=== PATIENT | female | born 1985 | race African-American/Black ===

== ENCOUNTER 2016-08-19 19:40 | Emergency (ER) | payer OTHER ==
[2016-08-19 19:50] VITALS: BP 190/117; PULSE 101; TEMP 98; BMI 31.6
--- NOTE | 2016-08-19 21:29 | PDOC ---
History of Present Illness <Shivani Stewart - Last Filed: 08/20/16 00:34> - History of Present Illness Initial Comments: 08/19/16 21:49 The patient is a 31 year old female with a past medical hx of gestational diabetes, preeclampsia who presents to the ED for evaluation of SOB and vomiting. The patient states she has been vomiting in the mornings. She reports her LMP was 2 months ago and believes she may be . The patient is also complaining of back pain. The patient denies chest pain The patient denies fever, chills, diarrhea, abdominal pain Surgical: Two C-sections <Judy Jefferson - Last Filed: 08/20/16 00:35> - General Chief Complaint: Vaginal Bleeding Stated Complaint: VAGINAL BLEEDING Time Seen by Provider: 08/19/16 20:15 Past History - Past Medical History Asthma: No Cancer: No Cardiac Disorders: No Diabetes: No HTN: Yes Seizures: No Thyroid Disease: No - Psycho/Social/Smoking Cessation Hx Suicidal Ideation: No Smoking History: Current every day smoker Have you smoked in the past 12 months: No Number of Cigarettes Smoked Daily: 8 Information on smoking cessation initiated: No Hx Alcohol Use: No Drug/Substance Use Hx: No Hx Substance Use Treatment: No <Shivani Stewart - Last Filed: 08/20/16 00:34> <Judy Jefferson - Last Filed: 08/20/16 00:35> - Past Medical History Allergies/Adverse Reactions: Allergies Allergy/AdvReac Type Severity Reaction Status Date / Time No Known Allergies Allergy Verified 08/19/16 19:47 Home Medications: Ambulatory Orders Labetalol HCl [Normodyne -] 200 mg PO DAILY #30 tablet 08/20/16 Review of Systems - Review of Systems Able to Perform ROS?: Yes Comments:: 08/19/16 21:49 CONSTITUTIONAL: Absent: fever, chills, diaphoresis, generalized weakness, malaise, loss of appetite HEENT: Absent: rhinorrhea, nasal congestion, throat pain, throat swelling, difficulty swallowing, mouth swelling, ear pain, eye pain, visual Changes CARDIOVASCULAR: Absent: chest pain, syncope, palpitations, irregular heart rate, lightheadedness , peripheral edema RESPIRATORY: +Shortness of breath Absent: cough, dyspnea with exertion, orthopnea, wheezing, stridor, hemoptysis GASTROINTESTINAL: +Nausea, vomiting. Absent: abdominal pain, abdominal distension, diarrhea, constipation, melena, hematochezia GENITOURINARY: Absent: dysuria, frequency, urgency, hesitancy, hematuria, flank pain, genital pain MUSCULOSKELETAL: +Back pain. Absent: joint swelling SKIN: Absent: rash, itching, pallor NEUROLOGIC: Absent: headache, focal weakness or paresthesias, dizziness, unsteady gait, seizure, mental status changes, bladder or bowel incontinence PSYCHIATRIC: Absent: anxiety, depression, suicidal or homicidal ideation, hallucinations. <LiJudy - Last Filed: 08/20/16 00:35> *Physical Exam - Vital Signs Last Vital Signs Temp Pulse Resp BP Pulse Ox 98.0 F 101 H 14 190/117 96 08/19/16 19:48 08/19/16 19:48 08/19/16 19:48 08/19/16 19:48 08/19/16 19:48 <Shivani Stewart - Last Filed: 08/20/16 00:34> - Vital Signs Last Vital Signs Temp Pulse Resp BP Pulse Ox 98.0 F 101 H 14 190/117 96 08/19/16 19:48 08/19/16 19:48 08/19/16 19:48 08/19/16 19:48 08/19/16 19:48 - Physical Exam Comments: 08/19/16 21:49 GENERAL: Well developed, well nourished. Awake and alert. No acute distress. HEENT: Normocephalic, atraumatic. PERRLA, EOMI. No conjunctival pallor. Sclera are non- icteric. Moist mucous membranes. Oropharynx is clear. NECK: Supple. Full ROM. No JVD. Carotid pulses 2+ and symmetric, without bruits. No thyromegaly. No lymphadenopathy. CARDIOVASCULAR: Regular rate and rhythm. No murmurs, rubs, or gallops. Distal pulses are 2+ and symmetric. PULMONARY: No evidence of respiratory distress. Lungs clear to auscultation bilaterally. No wheezing, rales or rhonchi. ABDOMINAL: Soft. Non-tender. Non-distended. No rebound or guarding. No organomegaly. Normoactive bowel sounds. MUSCULOSKELETAL Normal range of motion at all joints. No bony deformities or tenderness. No CVA tenderness. EXTREMITIES: No cyanosis. No clubbing. No edema. No calf tenderness. SKIN: Warm and dry. Normal capillary refill. No rashes. No jaundice. NEUROLOGICAL: Alert, awake, appropriate. Cranial nerves 2-12 intact. No deficits to light touch and temperature in face, upper extremities and lower extremities. No motor deficits in the in face, upper extremities and lower extremities. Normoreflexic in the upper and lower extremities. Normal speech. Toes are down-going bilaterally. Gait is normal without ataxia. PSYCHIATRIC: Cooperative. Good eye contact. Appropriate mood and affect. <Judy Jefferson - Last Filed: 08/20/16 00:35> ED Treatment Course - LABORATORY CBC & Chemistry Diagram: 08/19/16 21:59 08/19/16 21:59 <Shivani Stewart - Last Filed: 08/20/16 00:34> - LABORATORY CBC & Chemistry Diagram: 08/19/16 21:59 08/19/16 21:59 - RADIOLOGY Radiograph Interpretation: 08/20/16 00:35 FINDINGS: Ultrasound :Uterus is anteverted and measures 10.1centimeters in length. There is a single live IUP with estimated gestational age of 7weeks and 6days. There is a normal heart rate of 156 beats per minute. There is no subchorionic bleed. The right ovary measures 3.9centimeters in length and contains a 2.2 cm complex cyst, possibly a corpus luteum. The left ovary measures 3.3centimeters in length and appears normal. There is no significant free fluid. Pelvic duplex: There is normal arterial and venous flow in both ovaries. IMPRESSION: Live IUP with estimated age of 7 weeks 6 days, without definite abnormalities. THIS DOCUMENT HAS BEEN ELECTRONICALLY SIGNED Ricky Thompson MD 08/20/2016 00:18 EST <Judy Jefferson - Last Filed: 08/20/16 00:35> *DC/Admit/Observation/Transfer <Shivani Stewart - Last Filed: 08/20/16 00:34> - Attestations Scribe Attestion: 08/19/16 21:49 Documentation prepared by Judy Jefferson, acting as medical practice manager for Shivani Stewart MD/DO. <Judy Jefferson - Last Filed: 08/20/16 00:35> Diagnosis at time of Disposition: Hypertension Qualifiers: Weeks of gestation: less than 8 weeks Qualified Code(s): Z3A.01 - Less than 8 weeks gestation of - Discharge Dispostion Disposition: HOME Condition at time of disposition: Stable - Prescriptions Prescriptions: Labetalol HCl [Normodyne -] 200 mg PO DAILY #30 tablet - Referrals Referrals: Hector Butt MD [Primary Care Provider] - - Patient Instructions Printed Discharge Instructions: DI for High Blood Pressure, DI for - - Discomforts and Remedies Additional Instructions: please follow up with your energy economist 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
[2016-08-19] MEDS ORDERED: LABETALOL HCL 200 MG TABLET (FP) PO ONE (21:45)
[2016-08-19] MEDS ORDERED: LABETALOL HCL 100 MG TABLET (FP) ONE (22:07)
[2016-08-19 22:24] LABS: URINE APPEARANCE SLCLOUDY; URINE BILIRUBIN NEGATIVE (NEGATIVE); URINE BLOOD NEGATIVE (NEGATIVE); URINE COLOR YELLOW; URINE GLUCOSE (UA) NEGATIVE (NEGATIVE); URINE KETONE NEGATIVE (NEGATIVE); URINE LEUK ESTERASE NEGATIVE (NEGATIVE); URINE NITRITE NEGATIVE (NEGATIVE); URINE PROTEIN NEGATIVE (NEGATIVE); URINE UROBILINOGEN NEGATIVE E.U./dl (0.2-1.0)
[2016-08-19 22:25] LABS: BASOPHIL 0.4 % (0-2.0); EOSINOPHIL 0.5 % (0-4.5); MEAN PLT VOLUME 8.5 fl (7.5-11.1); NEUTROPHILS 48.8 % (42.8-82.8)
[2016-08-19 22:27] LABS: MCH 26.5 pg (25.7-33.7); MCHC 32.6 g/dl (32.0-36.0); MEAN CELL VOLUME 81.1 fl (80-96); RDW 19.1 % (11.6-15.6); WHITE BLOOD COUNT 6.2 K/mm3 (4.0-10.0)
[2016-08-19 22:30] LABS: PLATELET COUNT 264 K/MM3 (134-434)
[2016-08-19 22:46] LABS: ALBUMIN 3.5 g/dl (3.4-5.0); ANION GAP 8 (8-16); BILIRUBIN,TOTAL 0.1 mg/dL (0.2-1.0); CALCIUM 8.7 mg/dL (8.5-10.1); CO2 23 mmol/L (21-32); CREATININE 0.6 mg/dL (0.55-1.02); GLUCOSE,RANDOM 87 mg/dL (74-106); SGOT/AST 10 U/L (15-37); SGPT/ALT 18 U/L (12-78)
[2016-08-19 22:47] LABS: ALK PHOS 64 U/L (45-117)
[2016-08-19 23:09] LABS: PLATELET ESTIMATE ADEQUATE (NORMAL)
[2016-08-19 23:10] LABS: PLATELET COMMENT2 NO CLOTTING DETECTED; PLATELET COMMENT3 FEW LARGE PLTS
[2016-08-20] MEDS ORDERED: ACETAMINOPHEN 500 MG TABLET (FP) PO ONE (00:06)
[2016-08-20] MEDS ORDERED: ACETAMINOPHEN 325 MG TABLET (FP) ONE (00:29)
== END 2016-08-20 00:26 | disposition home or self-care (01) ==
LOC: JER 19:40
DX: O13.1 Gestational [pregnancy-induced] hypertension without significant proteinuria, first trimester (principal); O34.81 Maternal care for other abnormalities of pelvic organs, first trimester; N83.291 Other ovarian cyst, right side; Z3A.08 8 weeks gestation of pregnancy
CPT/HCPCS: 36415; 76817-TC; 80053; 81003; 84702; 85025; 99282-25

== ENCOUNTER 2017-10-16 06:45 | Inpatient (IN) | payer OTHER ==
[2017-10-16 07:51] VITALS: BMI 35.7
[2017-10-16] MEDS ORDERED: PHENYLEPHRINE HCL 10 MG/1 ML SINGLE DOSE VIAL ONE (07:57)
[2017-10-16] MEDS ORDERED: morphine SULFATE/Preservative Free 0.5 MG/ML (1cc Syringe) ONE (07:57)
[2017-10-16] MEDS: ELECTROLYTE-148 SOLN 1,000 ML IV SCH (08:00)
[2017-10-16] MEDS ORDERED: ELECTROLYTE-148 SOLN 500 ML IV ONE (08:03)
[2017-10-16] MEDS ORDERED: CITRIC ACID/SODIUM CITRATE 30 ML UNIT-DOSE CUP PO ONE (08:03)
--- NOTE | 2017-10-16 08:11 | HP ---
Past Medical History - Primary Care Physician PCP:: Sabi Calixto - Admission Chief Complaint: 32 yrs , 39 weeks IUP , previous c/s x2 , abdominoplasty , for Repeat c/s. pt changed her mind about Voluntory sterlization . 10/11/17 sono 38 weeks, , vx, bpp8/8, efw 7'10", alejandro 21.4, fundal placenta History of Present Illness: PNC at , [facility] . pt non compliant wt gain 17 lbs work UP: A pos, Rpr nr, Hbsag neg, Rubella immune , Quantiferon neg Hiv neg , Gbs neg , gc/ct neg She refused GTT BP are noted high from 7 weeks gestation 137/84, subsequent BP are recorded 157 /102, 141/86, 137/83. 160/92 she did not submit 24 hr urine protein. urine protein neg or trace HELLP work up done 1 week ago & 10/07/17 neg , urine drug tox pos for marijuana , sono & bpp done 1 week ago wnl she was recommended antepartum testing NST , compliant sometimes . 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 Weeks Gestation by Dates: 39.4 ...EDC by Dates: 10/19/17 ...EDC by Sono: 10/23/17 (39 weeks) Additional OB History: 03/15/11 primary c/section 37 weeks, 6'' h/o gdm, pih, failed induction. 02/02/15 repeat c/s 40 weeks 6'9", h/o pih & gdm. IND AB x3 Infectious Disease: No: AIDS, HIV, Tuberculosis Endocrine: Yes: Diabetes Mellitus (gestational during last 2 pregn) - Past Surgical History Past Surgical History: Yes: (2010, 2014) Hx Myomectomy: No Hx Transabdominal Cerclage: No Additional Surgical History: abdominoplasty 2014 - Smoking History Smoking history: Never smoked Have you smoked in the past 12 months: No Aproximately how many cigarettes per day: 8 - Alcohol/Substance Use Hx Alcohol Use: No History of Substance Use: reports: None, Marijuana (pt admitted , she took last week. only occassionally) - Social History ADL: Independent History of Recent Travel: No Home Medications - Allergies Allergies/Adverse Reactions: Allergies Allergy/AdvReac Type Severity Reaction Status Date / Time No Known Allergies Allergy Verified 10/16/17 07:29 - Home Medications Home Medications: Ambulatory Orders One Tablet 1 tab PO DAILY 10/05/17 Physical Exam - Maternity Vital Signs: Vital Signs Temperature 97.7 F 10/16/17 07:54 Pulse Rate 79 10/16/17 07:54 Respiratory Rate 18 10/16/17 07:54 Blood Pressure 139/90 10/16/17 07:54 O2 Sat by Pulse Oximetry (%) Constitutional: Yes: Well Nourished, Obese Eyes: Yes: WNL, Occular Prosthesis HENT: Yes: Normocephalic Neck: Yes: WNL Cardiovascular: Yes: WNL, Regular Rate and Rhythm Lungs: Clear to auscultation Breast(s): Yes: WNL. No: Mass - Abdominal Exam/OB Fundal Height: 38 Number of Fetuses: Single Presentation: Vertex Contractions: No Monitor Mode: External Heart Rate (range): 140 Heart Rate Location: Midline Category: I Accelerations: Uniform Decelerations: None - Vaginal Exam/OB Vaginal Bleediing: No Speculum Exam: No Dilatation (cm): close Effacement (%): unefface Amniotic Membrane Status: Intact Presentation: Vertex/Position Station: -3 - Physical Exam Musculoskeletal: Yes: WNL Extremities: Yes: WNL. No: Calf Tenderness Edema: Yes Edema: LLE: 1+, RLE: 1+ Integumentary: Yes: Incision (abdominoplasty scar , periumblical incision), Tattoos Deep Tendon Reflex Grade: Normal +2 ...Motor Strength: WNL Psychiatric: Yes: WNL - Labs Lab Results: Laboratory Tests 10/11/17 10/11/17 10/11/17 12:20 12:20 12:20 WBC RBC Hgb Hct Plt Count Neutrophils % Lymphocytes % PT with INR INR PTT (Actin FS) Sodium Potassium Chloride Carbon Dioxide Anion Gap BUN Creatinine Creat Clearance w eGFR Random Glucose Uric Acid Calcium Total Bilirubin GGT AST ALT Total Protein Albumin Urine Protein Negative Urine Glucose (UA) Negative Urine Ketones Negative Urine Blood Negative Urine Urobilinogen Negative Ur Leukocyte Esterase Negative Urine Creatinine 77.0 Protein/Creatinin Ratio 0.2 Opiates Screen Negative Methadone Screen Negative Barbiturate Screen Negative Phencyclidine Screen Negative Ur Amphetamines Screen Negative MDMA (Ecstasy) Screen Negative Benzodiazepines Screen Negative Cocaine Screen Negative U Marijuana (THC) Screen Positive RPR Titer 10/11/17 10/11/17 10/11/17 12:36 12:36 12:36 WBC 5.6 RBC 4.22 Hgb 12.7 Hct 38.2 Plt Count 202 Neutrophils % 61.0 D Lymphocytes % 29.9 D PT with INR INR PTT (Actin FS) Sodium 140 Potassium 4.1 Chloride 109 H Carbon Dioxide 22 Anion Gap 9 BUN 8 Creatinine 0.6 Creat Clearance w eGFR > 60 Random Glucose 66 L Uric Acid 3.8 Calcium 8.8 Total Bilirubin 0.2 D GGT 13 AST 14 L ALT 21 Total Protein 6.4 Albumin 2.8 L Urine Protein Urine Glucose (UA) Urine Ketones Urine Blood Urine Urobilinogen Ur Leukocyte Esterase Urine Creatinine Protein/Creatinin Ratio Opiates Screen Methadone Screen Barbiturate Screen Phencyclidine Screen Ur Amphetamines Screen MDMA (Ecstasy) Screen Benzodiazepines Screen Cocaine Screen U Marijuana (THC) Screen RPR Titer 10/11/17 10/11/17 12:36 12:36 WBC RBC Hgb Hct Plt Count Neutrophils % Lymphocytes % PT with INR 10.40 INR 0.92 PTT (Actin FS) 30.1 Sodium Potassium Chloride Carbon Dioxide Anion Gap BUN Creatinine Creat Clearance w eGFR Random Glucose Uric Acid Calcium Total Bilirubin GGT AST ALT Total Protein Albumin Urine Protein Urine Glucose (UA) Urine Ketones Urine Blood Urine Urobilinogen Ur Leukocyte Esterase Urine Creatinine Protein/Creatinin Ratio Opiates Screen Methadone Screen Barbiturate Screen Phencyclidine Screen Ur Amphetamines Screen MDMA (Ecstasy) Screen Benzodiazepines Screen Cocaine Screen U Marijuana (THC) Screen RPR Titer Nonreactive Hemorrhage Risk Assessment - Risk Factors Medium Risk Factors: Yes: Prior , uterine surgery,or multiple laparotomies Risk Score: 1 Risk Level: Medium Risk Problem List - Problems (1) with 39 completed weeks gestation Code(s): Z3A.39 - 39 WEEKS GESTATION OF (2) Previous section Code(s): Z98.891 - HISTORY OF UTERINE SCAR FROM PREVIOUS SURGERY (3) Chronic hypertension affecting Code(s): O10.919 - UNSP PRE-EXISTING HTN COMP , UNSP TRIMESTER Assessment/Plan 32 yrs , 39 weeks, previous c/sx2, s/p abdominoplasty, chr HTN affecting pregn , gbs neg Marijuana , urine drug screen pos Plan repeat lftc/s
[2017-10-16] MEDS ORDERED: BUPIVACAINE 0.75% IN DEXTROSE/PF 2ML AMPULE NR ONE (08:20)
[2017-10-16] MEDS ORDERED: ONDANSETRON 4 MG/2 ML VIAL IVPUSH PRN (08:33)
[2017-10-16] MEDS ORDERED: IBUPROFEN 600 MG TABLET (FP) PO PRN (08:33)
[2017-10-16] MEDS ORDERED: OXYTOCIN 20 UNITS in 0.9% NS 20 UNIT/1,000 ML INFUS.BAG IV ONE ×2 (09:10→10:18)
[2017-10-16] MEDS ORDERED: MIDAZOLAM HCL 2 MG/2 ML SINGLE DOSE VIAL ONE (09:15)
[2017-10-16 09:46] LABS: VENOUS PC02 44.8 mmHg (38-52); VENOUS PH 7.33 (7.32-7.42); VENOUS PO2 27.3 mmHg (28-48)
[2017-10-16 10:00] LABS: COCAINE, UR NEGATIVE ng/ml (CUTOFF=300); METHADONE, UR NEGATIVE ng/ml (CUTOFF=300); OPIATES, URI NEGATIVE ng/ml (CUTOFF=300); PHENCYCLIDINE,URINE NEGATIVE ng/ml (CUTOFF=25); URINE AMPHETAMINES NEGATIVE ng/ml (CUTOFF=500); URINE BARBITURATES NEGATIVE ng/ml (CUTOFF=200); URINE BENZODIAZEPINES NEGATIVE ng/ml (CUTOFF=200)
[2017-10-16] MEDS ORDERED: KETOROLAC TROMETHAMINE 30 MG/1 ML VIAL ONE (10:08)
[2017-10-16] MEDS ORDERED: METHYLERGONOVINE MALEATE 0.2 MG/1 ML AMP IM PRN (10:13)
[2017-10-16] MEDS ORDERED: ACETAMINOPHEN 1000 MG/100 ML VIAL (NON FORMULARY) IVPB PRN (10:18)
[2017-10-16] MEDS: OXYTOCIN 20 UNITS in 0.9% NS 20 UNIT/1,000 ML INFUS.BAG IV SCH (10:30)
[2017-10-16] MEDS: LABETALOL HCL 200 MG TABLET (FP) PO PRN (10:40)
--- NOTE | 2017-10-16 11:01 | PN ---
Delivery - Delivery Section: Repeat, Low Flap Transverse (Indication :39 wks , previous c/ sx2, abdominoplasty , chr htn) Type of Anesthesia: Spinal Episiotomy/Laceration: None EBL (cc): 900 (vazquez output 175, cuauhtemoc color ) Delivery, Single - Stages of Labor Date of Delivery: 10/16/17 Time of Delivery: 08:53 Time Placenta Delivered: 08:54 Placenta: Yes: Manual Removal, Uterine Exploration - Condition of Photoengraving Photographer/Shop Clerk Present: Yes Name: Aman Jennings Infant Gender: Male Weight: 6 lb Position: OP Total Hours ROM (Hrs/Mins): 7mins - 1 Minute Total Score: 3 5 Minutes Total Score: 8 10 Minutes Total Score: 9 - [place] Feeding Plan Initial Plan: Elected not to breastfeed exclusively throughout hospitalization Remarks - Remarks Remarks: 32 yrs , 39 weeks iup , previous c/s x2, abdominoplasty , Chr Htn , gbs neg , pnc at [address] [place] [address] intrra op scarring encountered secondary to Rectus Muscle transected latrally both sides , before uterine incision . difficulty encountered delivering baby, vacuum assist vaginal delivery performed Intraop 2 gm Iv ancef was given prior to incision
--- NOTE | 2017-10-16 11:08 | OP ---
Operative Note - Note: Operative Date: 10/16/17 Pre-Operative Diagnosis: 39 weeks, previousc/sx2, s/p abdominoplasty, chr htn complicating pregn Operation: Repet lftc/s Findings: 8.53 AM, baby boy OP position , vaccum assit during c/s reqd , baby 3-8- 9 , wt 6' DR Jennings ruby software developer present in the room scarring of abdomen wall . transection of rectus muscle on both sides done to achieve adequate opening difficuty encountered delivering fetus both tubes & ovaries normal Surgeon: Sabi Calixto Boat Rental Clerk: Aftab Capone Anesthesiologist/SENIOR ENGINEERING ASSOCIATE: Ugo Romero Anesthesia: Spinal Specimens Removed: placenta. cord segment for gas. cord blood Estimated Blood Loss (mls): 900 Drains, Volume Out (mls): 175 (vazquez output , cuauhtemoc color ) Fluid Volume Replaced (mls): 1,800 (2 gm iv ancef given )
--- NOTE | 2017-10-16 14:48 | PN ---
Progress Note (short form) - Note Progress Note: Renal Consult for hypertension This is a 32 year old woman with PMhx of Preeclampsia who presented at 39 weeks gestation now s/p with Hypertension. Pt reports feeling ok. No RIVERA, blurry vision, CP, Abd pain, N/V/D. Pt was told that her BP was elevated the last few weeks but did to take any meds. Her UA and UPCR from outpatient clinic showed no signifincat proteinuria. Pt given labetalol this am. Gained about 45 lbs during . PMhx: as above Allergies: NKDA Family hx: Mother with Hypertension Social Hx: No T/A/D ROS: as per HPI Home Medications Medication Instructions Recorded One Tablet 1 tab PO DAILY 10/05/17 Vital Signs Temperature 97.5 F L 10/16/17 14:00 Pulse Rate 88 10/16/17 14:00 Respiratory Rate 18 10/16/17 14:00 Blood Pressure 151/77 10/16/17 14:00 O2 Sat by Pulse Oximetry (%) 100 10/16/17 11:15 NAD awake and alert no JVD Trace LE edema Laboratory Tests 10/11/17 10/11/17 10/11/17 12:20 12:20 12:36 Sodium 140 Potassium 4.1 Carbon Dioxide 22 BUN 8 Creatinine 0.6 AST 14 L ALT 21 Alkaline Phosphatase 152 H Urine Protein Negative Protein/Creatinin Ratio 0.2 Current Medications Acetaminophen (Tylenol -) 650 mg PO Q4H PRN PRN Reason: PAIN LEVEL 1-5 Acetaminophen (Ofirmev Injection -) 1,000 mg IVPB Q6H PRN PRN Reason: PAIN LEVEL 4 - 6 Bisacodyl (Dulcolax Suppository -) 10 mg RC PRN PRN PRN Reason: CONSTIPATION Diphenhydramine HCl (Benadryl Injection -) 25 mg IVPUSH Q4H PRN PRN Reason: Pruritis Diphtheria/Tetanus/Acell Pertussis (Boostrix -) 0.5 ml IM .ONCE ONE Stop: 10/17/17 10:01 Enoxaparin Sodium (Lovenox -) 40 mg SQ DAILY WILVER Ferrous Sulfate (Feosol -) 325 mg PO BID WILVER Parenteral Electrolytes (Plasma-Lyte 148 -) 1,000 mls @ 125 mls/hr IV ASDIR WILVER Last Admin: 10/16/17 08:00 Dose: 125 mls/hr Cefazolin Sodium 1 gm/ (Dextrose) 50 mls @ 100 mls/hr IVPB Q8H-IV WILVER Stop: 10/17/17 17:59 Oxytocin/Sodium Chloride (Normal Saline+20 Units Oxytocin -) 20 unit in 1,000 mls @ 125 mls/hr IV ASDIR WILVER Last Admin: 10/16/17 10:30 Dose: 125 mls/hr Labetalol HCl (Normodyne -) 200 mg PO Q6H PRN PRN Reason: HYPERTENSION Last Admin: 10/16/17 10:40 Dose: 200 mg Methylergonovine Maleate (Methergine Injection -) 0.2 mg IM Q4H PRN PRN Reason: Excessive Bleeding (L&D) Ondansetron HCl (Zofran Injection) 4 mg IVPUSH Q4H PRN PRN Reason: NAUSEA Oxycodone HCl (Roxicodone -) 5 mg PO Q4H PRN PRN Reason: PAIN LEVEL 4 - 6 Oxycodone HCl (Roxicodone -) 10 mg PO Q4H PRN PRN Reason: PAIN LEVEL 7 - 10 Multivit/Folic Acid/Iron ( Vitamins (Sjr) -) 1 tab PO DAILY WILVER Simethicone (Mylicon -) 80 mg PO Q4H PRN PRN Reason: GAS 32 year old woman with PMhx of Preeclampsia who presented at 39 weeks gestation now s/p with Hypertension. # Hypertension secondary to PIH vs. underlying hypertension vs. Preeclampsia Repeat urine studies here No LFT abnormalities as outpatient but repeat labs in AM low salt diet, avoid NSAIDs for pain control continue Labetalol 200mg Q6h PRN for SBP > 140 or DBP > 90 Will follow closely Thank you Richy Cuadra DO
[2017-10-16 17:33] LABS: URINE APPEARANCE CLEAR; URINE BILIRUBIN NEGATIVE (<2.0 mg/dL); URINE BLOOD NEGATIVE (NEGATIVE); URINE COLOR YELLOW; URINE GLUCOSE (UA) NEGATIVE (NEGATIVE); URINE KETONE 1+ (NEGATIVE); URINE NITRITE NEGATIVE (NEGATIVE); URINE PROTEIN NEGATIVE (NEGATIVE)
[2017-10-16 17:34] LABS: URINE LEUK ESTERASE 1+ (NEGATIVE)
[2017-10-16 17:44] LABS: EPI CELLS RARE /HPF (FEW); URINE BACTERIA RARE /hpf (NONE SEEN); URINE MUCUS FEW
[2017-10-16] MEDS ORDERED: DEXTROSE 5%-WATER - 50 ML IVPB ONE (18:18)
[2017-10-16] MEDS ORDERED: ceFAZolin SODIUM 1 GM VIAL ONE (18:18)
[2017-10-16] MEDS: CEFAZOLIN 1 GM in DEXTROSE 5%-WATER - 50 ML IVPB SCH (18:26)
--- NOTE | 2017-10-16 18:30 | OP ---
DATE OF OPERATION: 10/16/2017 PREOPERATIVE DIAGNOSES: A 39 weeks' , previous section x2, abdominoplasty, chronic hypertension complicating . OPERATION DONE: Repeat low-flap transverse section. SURGEON: Robert Calixto MD LIQUOR RUNNER: YADIEL Sherwood ANESTHESIOLOGIST: Ugo Romero MD ANESTHESIA: Spinal. MACHINE SETTER AND REPAIRER: Aman Jennings MD FINDINGS: This is a 32-year-old 6, para 2-0-3-2, not in labor, previous x2, who requests for a repeat , history of chronic hypertension, not on any medications, no pre-eclampsia, and the patient declines voluntary sterilization. GBS negative. PROCEDURE: Patient is taken to the operating room table. Abdomen was shaved, prepped. Rose catheter was placed. Spinal anesthesia was given. She was placed in supine position. Abdomen was painted and draped in usual manner. Pfannenstiel incision was made in the previous abdominoplasty scar. The skin, subcutaneous tissue, it was all scar tissue. Unable to identify subcutaneous tissue from rectus sheath, and it was incised. Muscles were also not very well defined. The anterior rectus sheath was incised, and the rectus sheath was from the muscles. The muscle was covered as if with scarring, too. Between the 2 rectus muscles, midline was opened up. Parietal peritoneum was then found, and it was opened vertically. The abdominal opening was very inadequate; so, rectus muscle was transected laterally on both sides, and once enough adequate opening found, then the lower uterine segment there was no definite bladder peritoneum, also. So, the lower area just above the bladder area, the uterine segment was incised transversely. Amniotic fluid was clear, and the baby was trying to deliver. It was difficult encountered in delivering the baby. The uterine incision was extended laterally on both sides upward. Still, the infant could not be delivered. So, the vacuum cup was applied, and the baby's head with fundal pressure and vacuum, the baby was finally delivered at 8:53 a.m., baby boy, OP position. Baby's Apgars were 3, 8, and 9. Dr. Jennings, material control associate, was present in the room. Cord was clamped, cut. Cord blood was collected. Cord segment was sent for the ABG. Then, the placenta was removed completely with the membranes. Uterine incision was closed in 2 layers. First layer was a continuous locking with Biosyn 0 suture. Second layer was a continuous, intermittent locking with Biosyn 0 suture. Hemostasis was noted. Both tubes and ovaries were normal. Irrigation was done. Sponge, instrument, and needle count was correct. Closure of the abdomen was done. Parietal peritoneum was closed with 0 Vicryl suture. Muscles were approximated together with Biosyn 0 suture. Anterior rectus sheath was freed from the scar from the skin, and then, anterior rectus sheath was closed with 0 Vicryl suture. Continuous sutures were taken. Subcutaneous tissue with the scar tissue was approximated in 2 layers. First was a continuous locking with Biosyn 0 suture. The second layer was a continuous intermittent locking with a Biosyn 0. The skin was approximated with 3-0 Vicryl on a straight needle. Steri-Strips were applied. Pressure dressing given. Blood clots were removed from the vagina, and the patient tolerated the procedure well. She was transferred to the recovery room in stable condition. Estimated blood loss was 900 mL. Urine output was 175 mL. She received 2 g of IV Ancef prior to the incision. ROBERT CALIXTO M.D. [id number]
[2017-10-17] MEDS ORDERED: DEXTROSE 5%-WATER - 50 ML IVPB ONE ×2 (01:17→09:01)
[2017-10-17] MEDS ORDERED: ceFAZolin SODIUM 1 GM VIAL ONE ×2 (01:17→09:01)
[2017-10-17] MEDS: CEFAZOLIN 1 GM in DEXTROSE 5%-WATER - 50 ML IVPB SCH ×2 (01:27→09:11)
[2017-10-17] MEDS ORDERED: oxyCODONE HCL 5 MG TABLET ONE (03:11)
[2017-10-17] MEDS: SIMETHICONE 80 MG TAB.CHEW (FP) PO PRN ×4 (03:14→21:01)
[2017-10-17] MEDS: oxyCODONE HCL 5 MG TABLET PO PRN ×4 (03:16→21:01)
[2017-10-17] MEDS: ACETAMINOPHEN 325 MG TABLET (FP) PO PRN ×4 (03:16→21:00)
[2017-10-17] MEDS: LABETALOL HCL 200 MG TABLET (FP) PO PRN (06:13)
--- NOTE | 2017-10-17 07:33 | PN ---
Post Progress Note - Subjective Subjective: 32 yo Para 3 status post repeat , seen and evaluated. Doing well. Post Day: 1 Type of Delivery: Repeat C/S Vital Signs: Vital Signs Temperature 98.4 F 10/17/17 06:00 Pulse Rate 78 10/17/17 06:00 Respiratory Rate 18 10/17/17 06:00 Blood Pressure 142/91 10/17/17 06:00 O2 Sat by Pulse Oximetry (%) 100 10/16/17 21:00 Breast Exam: Yes: Soft Uterus: Yes: Fundus above umbilicus Incision: Yes: Dressing dry and intact Abdomen/GI: Yes: Abdomen soft Lochia: Yes: Rubra Lochia, amount: Small Extremities: Yes: Calves non-tender Perineum: Yes: Intact Activity: Other (She's lying in bed) Assessment/Plan Status post repeat Ambulation Analgesia as needed Continue routine post op care
[2017-10-17 08:40] LABS: BASO % 0.2 % (0-2.0); EOS % 0.7 % (0-4.5); HEMATOCRIT 35.9 % (32.4-45.2); LYMPH % 20.4 % (8-40); MCH 30.1 pg (25.7-33.7); MCHC 33.4 g/dl (32.0-36.0); MEAN PLT VOLUME 8.9 fl (7.5-11.1); MONO % 8.8 % (3.8-10.2); NEUT % 69.9 % (42.8-82.8); PLATELET COUNT 183 K/MM3 (134-434); RBC 3.98 M/mm3 (3.60-5.2); RDW 14.8 % (11.6-15.6); WHITE BLOOD COUNT 7.3 K/mm3 (4.0-10.0)
[2017-10-17 09:10] LABS: CHLORIDE 109 mmol/L (98-107); POTASSIUM 3.9 mmol/L (3.5-5.1); SODIUM 139 mmol/L (136-145)
[2017-10-17] MEDS: ENOXAPARIN NA (PORCINE) 40 MG/0.4 ML DISP.SYRIN SQ SCH (09:11)
[2017-10-17 09:17] LABS: ALBUMIN 2.4 g/dl (3.4-5.0); ALK PHOS 116 U/L (45-117); ANION GAP 7 (8-16); BILIRUBIN,TOTAL 0.3 mg/dL (0.2-1.0); BLOOD UREA NITROGEN 5 mg/dL (7-18); CALCIUM 8.1 mg/dL (8.5-10.1); CO2 23 mmol/L (21-32); CREATININE 0.5 mg/dL (0.55-1.02); GLUCOSE,RANDOM 77 mg/dL (74-106); SGOT/AST 22 U/L (15-37); SGPT/ALT 18 U/L (12-78); TOT PROT 5.6 g/dl (6.4-8.2)
[2017-10-17] MEDS ORDERED: DIPHTH,PERTUSS(ACELL),TET 0.5 ML DISP.SYRIN IM ONE (10:00)
[2017-10-17] MEDS: PRENATAL VITAMINS W/ FOLIC ACID TABLET (FP) PO SCH (10:03)
[2017-10-17] MEDS ORDERED: BISACODYL 10 MG SUPP.RECT RC PRN (10:14)
[2017-10-17] MEDS ORDERED: LABETALOL HCL 200 MG TABLET (FP) PO PRN (11:13)
--- NOTE | 2017-10-17 11:19 | PN ---
Progress Note (short form) - Note Progress Note: Renal follow up for hypertension Pt seen and examined at the bedside reports pain in pelvis no sob, chest pain, RIVERA, blurry vision BP remains elevated despite Vital Signs Temperature 98.5 F 10/17/17 08:00 Pulse Rate 85 10/17/17 10:10 Respiratory Rate 20 10/17/17 10:10 Blood Pressure 157/91 10/17/17 10:10 O2 Sat by Pulse Oximetry (%) 100 10/16/17 21:00 Intake & Output 10/14/17 10/15/17 10/16/17 10/17/17 23:59 23:59 23:59 23:59 Intake Total 3800 1500 Output Total 1715 3700 Balance 2085 -2200 Weight 97.522 kg NAD awake and alert RRR, No M/R CTA + LE edema CBC, BMP 10/17/17 08:15 10/17/17 08:15 Current Medications Acetaminophen (Tylenol -) 650 mg PO Q4H PRN PRN Reason: PAIN LEVEL 1-5 Last Admin: 10/17/17 07:59 Dose: 650 mg Acetaminophen (Ofirmev Injection -) 1,000 mg IVPB Q6H PRN PRN Reason: PAIN LEVEL 4 - 6 Last Admin: 10/16/17 21:54 Dose: 1,000 mg Bisacodyl (Dulcolax Suppository -) 10 mg RC PRN PRN PRN Reason: CONSTIPATION Diphenhydramine HCl (Benadryl Injection -) 25 mg IVPUSH Q4H PRN PRN Reason: Pruritis Last Admin: 10/17/17 09:54 Dose: 25 mg Enoxaparin Sodium (Lovenox -) 40 mg SQ DAILY [facility] Last Admin: 10/17/17 09:11 Dose: 40 mg Ferrous Sulfate (Feosol -) 325 mg PO BID [facility] Parenteral Electrolytes (Plasma-Lyte 148 -) 1,000 mls @ 125 mls/hr IV ASDIR [facility] Last Admin: 10/16/17 08:00 Dose: 125 mls/hr Cefazolin Sodium 1 gm/ (Dextrose) 50 mls @ 100 mls/hr IVPB Q8H-IV [facility]IL[facility] Stop: 10/17/17 17:59 Last Admin: 10/17/17 09:11 Dose: 100 mls/hr Oxytocin/Sodium Chloride (Normal Saline+20 Units Oxytocin -) 20 unit in 1,000 mls @ 125 mls/hr IV ASDIR [facility] Last Admin: 10/16/17 10:30 Dose: 125 mls/hr Labetalol HCl (Normodyne -) 200 mg PO Q6H PRN PRN Reason: HYPERTENSION Methylergonovine Maleate (Methergine Injection -) 0.2 mg IM Q4H PRN PRN Reason: Excessive Bleeding (L&D) Nifedipine (Procardia Xl -) 30 mg PO DAILY [facility] Ondansetron HCl (Zofran Injection) 4 mg IVPUSH Q4H PRN PRN Reason: NAUSEA Oxycodone HCl (Roxicodone -) 5 mg PO Q4H PRN PRN Reason: PAIN LEVEL 4 - 6 Last Admin: 10/17/17 07:58 Dose: 5 mg Oxycodone HCl (Roxicodone -) 10 mg PO Q4H PRN PRN Reason: PAIN LEVEL 7 - 10 Multivit/Folic Acid/Iron ( Vitamins (Sjr) -) 1 tab PO DAILY [facility] Last Admin: 10/17/17 10:03 Dose: Not Given Simethicone (Mylicon -) 80 mg PO Q4H PRN PRN Reason: GAS Last Admin: 10/17/17 07:58 Dose: 80 mg 32 year old woman with PMhx of Preeclampsia who presented at 39 weeks gestation now s/p with Hypertension. # Hypertension secondary to PIH vs. underlying hypertension vs. Preeclampsia BP remains elevated despite labetalol will start Procardia XL 30mg Daily Continue PRN labetaol for SBP > 160 or DBP > 100 Trend BP low salt diet avoid nsaids for pain control if possible Thank you Richy Cuadra DO
[2017-10-17] MEDS: NIFEdipine E.R. 30 MG TABLET (FP) PO SCH (11:42)
--- NOTE | 2017-10-17 13:03 | PN ---
Progress Note (short form) - Note Progress Note: Post op day#1.S/P C section under spinal anesthesia with duramorph uneventful.Patient stable and has little pain for which she is on medication.No any anesthesia related problem.Patient DC from the anesthesia care.
[2017-10-17] MEDS: FERROUS SO4 325 MG TABLET (FP) PO SCH (20:59)
[2017-10-18] MEDS: SIMETHICONE 80 MG TAB.CHEW (FP) PO PRN ×3 (04:20→21:35)
[2017-10-18] MEDS: ACETAMINOPHEN 325 MG TABLET (FP) PO PRN ×3 (04:20→21:35)
[2017-10-18] MEDS: oxyCODONE HCL 5 MG TABLET PO PRN ×3 (04:21→21:36)
--- NOTE | 2017-10-18 09:32 | PN ---
Post Progress Note - Subjective Subjective: 32 yo Para 3 status post repeat , seen and evaluated. Doing well. Post Day: 2 Type of Delivery: Repeat C/S Vital Signs: Vital Signs Temperature 98 F 10/18/17 08:31 Pulse Rate 90 10/18/17 08:31 Respiratory Rate 20 10/18/17 08:31 Blood Pressure 131/79 10/18/17 08:31 O2 Sat by Pulse Oximetry (%) 100 10/16/17 21:00 Breast Exam: Yes: Soft Uterus: Yes: Fundus Firm Incision: Yes: Dressing dry and intact Abdomen/GI: Yes: Abdomen soft, Tolerating PO Lochia: Yes: Rubra Lochia, amount: Moderate Extremities: Yes: Calves non-tender Perineum: Yes: Intact Activity: Ambulating - Labs Labs: CBC WBC 7.3 K/mm3 (4.0-10.0) D 10/17/17 08:15 RBC 3.98 M/mm3 (3.60-5.2) 10/17/17 08:15 Hgb 12.0 GM/dL (10.7-15.3) 10/17/17 08:15 Hct 35.9 % (32.4-45.2) 10/17/17 08:15 MCV 90.0 fl (80-96) 10/17/17 08:15 MCH 30.1 pg (25.7-33.7) 10/17/17 08:15 MCHC 33.4 g/dl (32.0-36.0) 10/17/17 08:15 RDW 14.8 % (11.6-15.6) 10/17/17 08:15 Plt Count 183 K/MM3 (134-434) 10/17/17 08:15 MPV 8.9 fl (7.5-11.1) 10/17/17 08:15 Neutrophils % 69.9 % (42.8-82.8) 10/17/17 08:15 Lymphocytes % 20.4 % (8-40) D 10/17/17 08:15 Monocytes % 8.8 % (3.8-10.2) 10/17/17 08:15 Eosinophils % 0.7 % (0-4.5) 10/17/17 08:15 Basophils % 0.2 % (0-2.0) 10/17/17 08:15 Nucleated RBC % 0 % (0-0) 10/17/17 08:15 Assessment/Plan Status post repeat Ambulation Analgesia as needed Continue routine post op care
--- NOTE | 2017-10-18 09:40 | PN ---
Progress Note (short form) - Note Progress Note: Renal follow up for hypertension Pt seen and examined at the bedside awake and alert complains of right shoulder discomfort no dizziness, lightheadedness, CP, RIVERA, blurry vision BP better this am Vital Signs Temperature 98 F 10/18/17 08:31 Pulse Rate 90 10/18/17 08:31 Respiratory Rate 20 10/18/17 08:31 Blood Pressure 131/79 10/18/17 08:31 O2 Sat by Pulse Oximetry (%) 100 10/16/17 21:00 Intake & Output 10/15/17 10/16/17 10/17/17 10/18/17 23:59 23:59 23:59 23:59 Intake Total 3800 1500 Output Total 1715 3700 Balance 2085 -2200 Weight 97.522 kg NAD awake and alert RRR, No M/R CTA + LE edema 32 year old woman with PMhx of Preeclampsia who presented at 39 weeks gestation now s/p with Hypertension. # Hypertension secondary to PIH vs. underlying hypertension Continue Procardia XL 30mg Daily, PRN Labetalol for BP > 160/100 Low salt diet pain control Thank you Richy Cuadra DO
[2017-10-18] MEDS: FERROUS SO4 325 MG TABLET (FP) PO SCH ×2 (10:06→21:23)
[2017-10-18] MEDS: ENOXAPARIN NA (PORCINE) 40 MG/0.4 ML DISP.SYRIN SQ SCH (10:06)
[2017-10-18] MEDS: NIFEdipine E.R. 30 MG TABLET (FP) PO SCH (10:07)
[2017-10-18] MEDS: PRENATAL VITAMINS W/ FOLIC ACID TABLET (FP) PO SCH (10:07)
[2017-10-19] MEDS: oxyCODONE HCL 5 MG TABLET PO PRN ×2 (05:18→13:41)
[2017-10-19] MEDS: SIMETHICONE 80 MG TAB.CHEW (FP) PO PRN (05:18)
[2017-10-19] MEDS: ACETAMINOPHEN 325 MG TABLET (FP) PO PRN ×2 (05:20→09:12)
[2017-10-19] MEDS: OXYTOCIN 20 UNITS in 0.9% NS 20 UNIT/1,000 ML INFUS.BAG IV SCH (06:40)
[2017-10-19] MEDS: ELECTROLYTE-148 SOLN 1,000 ML IV SCH (06:40)
[2017-10-19 07:35] LABS: BASO % 0.2 % (0-2.0); EOS % 2.8 % (0-4.5); HEMOGLOBIN 13.3 GM/dL (10.7-15.3); LYMPH % 13.8 % (8-40); MCH 30.6 pg (25.7-33.7); MCHC 34.1 g/dl (32.0-36.0); MEAN CELL VOLUME 89.7 fl (80-96); MEAN PLT VOLUME 8.3 fl (7.5-11.1); MONO % 5.8 % (3.8-10.2); NEUT % 77.4 % (42.8-82.8); PLATELET COUNT 226 K/MM3 (134-434); RBC 4.35 M/mm3 (3.60-5.2); RDW 14.6 % (11.6-15.6); WHITE BLOOD COUNT 7.2 K/mm3 (4.0-10.0)
[2017-10-19] MEDS: PRENATAL VITAMINS W/ FOLIC ACID TABLET (FP) PO SCH (09:12)
[2017-10-19] MEDS: NIFEdipine E.R. 30 MG TABLET (FP) PO SCH (09:12)
[2017-10-19] MEDS: FERROUS SO4 325 MG TABLET (FP) PO SCH ×2 (09:12→22:13)
[2017-10-19] MEDS: ENOXAPARIN NA (PORCINE) 40 MG/0.4 ML DISP.SYRIN SQ SCH (09:13)
--- NOTE | 2017-10-19 10:07 | DS ---
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 Exam-FINAL INSPECTOR BALANCE WHEEL Vital Signs: Vital Signs Temperature 98.1 F 10/19/17 09:28 Pulse Rate 95 H 10/19/17 09:28 Respiratory Rate 20 10/19/17 09:28 Blood Pressure 140/88 10/19/17 09:28 O2 Sat by Pulse Oximetry (%) 100 10/16/17 21:00 Constitutional: Yes: Well Nourished Eyes: Yes: Conjunctiva Clear HENT: Yes: Atraumatic Neck: Yes: Supple Cardiovascular: Yes: Regular Rate and Rhythm Respiratory: Yes: Regular Gastrointestinal: Yes: Normal Bowel Sounds Vaginal Exam: Yes: Normal Cervix: Yes: Normal Breast(s): Yes: WNL Musculoskeletal: Yes: WNL Extremities: Yes: WNL Wound/Incision: Yes: Well Approximated Neurological: Yes: Alert, Oriented ...Motor Strength: WNL Psychiatric: Yes: Alert, Oriented Labs: CBC, BMP 10/19/17 07:00 10/17/17 08:15 Delivery - Delivery Section: Repeat, Low Flap Transverse (Indication :39 wks , previous c/ sx2, abdominoplasty , chr htn) Type of Anesthesia: Spinal Episiotomy/Laceration: None EBL (cc): 900 (vazquez output 175, cuauhtemoc color ) Delivery, Single - Stages of Labor Date of Delivery: 10/16/17 Time of Delivery: 08:53 Time Placenta Delivered: 08:54 Placenta: Yes: Manual Removal, Uterine Exploration - 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 Present: Yes Name: Aman Jennings Infant Gender: Male Weight: 6 lb Position: OP Total Hours ROM (Hrs/Mins): 7mins - 1 Minute Total Score: 3 5 Minutes Total Score: 8 10 Minutes Total Score: 9 - [place] Feeding Plan Initial Plan: Elected not to breastfeed exclusively throughout hospitalization Discharge Summary Reason For Visit: C/SECTION Current Active Problems Chronic hypertension affecting (Acute) with 39 completed weeks gestation (Acute) Previous section (Acute) Procedures: Principal: Repeat Hospital Course: Routine care Condition: Stable - Instructions Diet, Activity, Other Instructions: Regular diet No driving, no lifting x 4 weeks F/U in clinic in 1 week Referrals: Sabi Calixto MD [Staff Physician] - Disposition: HOME - Home Medications Comprehensive Discharge Medication List: Ambulatory Orders One Tablet 1 tab PO DAILY 10/05/17
--- NOTE | 2017-10-19 12:00 | PN ---
Post Progress Note - Subjective Subjective: pt c/o pain scale 5-6 voiding without difficulty bm done Post Day: 3 Type of Delivery: Repeat C/S Vital Signs: Vital Signs Temperature 98.1 F 10/19/17 09:28 Pulse Rate 95 H 10/19/17 09:28 Respiratory Rate 20 10/19/17 09:28 Blood Pressure 140/88 10/19/17 09:28 O2 Sat by Pulse Oximetry (%) 100 10/16/17 21:00 Selected Entries 10/18/17 10/18/17 10/19/17 17:26 21:22 01:37 Blood Pressure 143/84 140/88 139/80 10/19/17 05:22 Blood Pressure 123/82 Breast Exam: Yes: Soft. No: Engorged (pain in the breast ,cold packs benig used ) Uterus: Yes: Fundus Firm, Fundus below umbilicus, Non-tender Incision: Yes: Sutures intact. No: Redness, Oozing Abdomen/GI: Yes: Abdomen soft, Passing flatus, Tolerating PO (diet). No: Abdominal Distention, Tender Lochia: Yes: Rubra Lochia, amount: Small Extremities: Yes: Calves non-tender Perineum: Yes: Intact Activity: Ambulating - Labs Labs: CBC WBC 7.2 K/mm3 (4.0-10.0) 10/19/17 07:00 RBC 4.35 M/mm3 (3.60-5.2) 10/19/17 07:00 Hgb 13.3 GM/dL (10.7-15.3) D 10/19/17 07:00 Hct 39.0 % (32.4-45.2) 10/19/17 07:00 MCV 89.7 fl (80-96) 10/19/17 07:00 MCH 30.6 pg (25.7-33.7) 10/19/17 07:00 MCHC 34.1 g/dl (32.0-36.0) 10/19/17 07:00 RDW 14.6 % (11.6-15.6) 10/19/17 07:00 Plt Count 226 K/MM3 (134-434) D 10/19/17 07:00 MPV 8.3 fl (7.5-11.1) 10/19/17 07:00 Neutrophils % 77.4 % (42.8-82.8) 10/19/17 07:00 Lymphocytes % 13.8 % (8-40) D 10/19/17 07:00 Monocytes % 5.8 % (3.8-10.2) 10/19/17 07:00 Eosinophils % 2.8 % (0-4.5) D 10/19/17 07:00 Basophils % 0.2 % (0-2.0) 10/19/17 07:00 Nucleated RBC % 0 % (0-0) 10/19/17 07:00 Problem List - Problems (1) with 39 completed weeks gestation Code(s): Z3A.39 - 39 WEEKS GESTATION OF (2) Previous section Code(s): Z98.891 - HISTORY OF UTERINE SCAR FROM PREVIOUS SURGERY (3) Chronic hypertension affecting Code(s): O10.919 - UNSP PRE-EXISTING HTN COMP , UNSP TRIMESTER (4) Substance abuse affecting in third trimester, antepartum Code(s): O99.323 - DRUG USE COMPLICATING , THIRD TRIMESTER (5) Delivery by (planned) section occurring after 37 completed weeks of gestation but before 39 completed weeks gestation due to (spontaneous) onset of labor, with mention of complication Code(s): O75.82 - ONSET LABOR 37-39 WEEKS, W DEL BY (PLANNED) SECTION (6) Encounter for routine follow-up Code(s): Z39.2 - ENCOUNTER FOR ROUTINE FOLLOW-UP Assessment/Plan s/p repeat c/section, substance abuse , chr HTN well controlled on po procardia 30 xl Plan CPS involved due to pos marijuana in urine for baby & mother . Po instructions given will discharge tomorrow.
--- NOTE | 2017-10-19 20:11 | PN ---
Progress Note (short form) - Note Progress Note: Renal follow up for hypertension Pt seen and examined at the bedside no acute complaints Vital Signs Temperature 98.8 F 10/19/17 13:54 Pulse Rate 103 H 10/19/17 17:54 Respiratory Rate 20 10/19/17 17:54 Blood Pressure 151/71 10/19/17 17:54 O2 Sat by Pulse Oximetry (%) 100 10/16/17 21:00 NAD awake and alert RRR, No M/R CTA + LE edema CBC, BMP 10/19/17 07:00 10/17/17 08:15 32 year old woman with PMhx of Preeclampsia who presented at 39 weeks gestation now s/p with Hypertension. # Hypertension secondary to PIH vs. underlying hypertension BP controlled well on procardia xl expect to discharge on same meds tomorrow low salt diet Thank you Richy Cuadra DO
[2017-10-20] MEDS: ACETAMINOPHEN 325 MG TABLET (FP) PO PRN (01:45)
[2017-10-20] MEDS: oxyCODONE HCL 5 MG TABLET PO PRN (01:46)
[2017-10-20] MEDS: ENOXAPARIN NA (PORCINE) 40 MG/0.4 ML DISP.SYRIN SQ SCH (10:10)
[2017-10-20] MEDS: NIFEdipine E.R. 30 MG TABLET (FP) PO SCH (10:10)
[2017-10-20] MEDS: PRENATAL VITAMINS W/ FOLIC ACID TABLET (FP) PO SCH (10:10)
[2017-10-20] MEDS: FERROUS SO4 325 MG TABLET (FP) PO SCH (10:10)
[2017-10-20 11:38] VITALS: TEMP 97.8
[2017-10-20 14:25] VITALS: BP 138/73; PULSE 100
--- NOTE | 2017-10-20 16:43 | DS ---
Physical Exam-PROCESSING REP Vital Signs: Vital Signs Temperature 97.8 F 10/20/17 10:00 Pulse Rate 100 H 10/20/17 14:00 Respiratory Rate 20 10/20/17 14:00 Blood Pressure 138/73 10/20/17 14:00 O2 Sat by Pulse Oximetry (%) 100 10/16/17 21:00 Selected Entries 10/19/17 10/20/17 10/20/17 22:00 01:41 06:00 Blood Pressure 132/73 135/78 134/85 10/20/17 10:00 Blood Pressure 133/86 Constitutional: Yes: Well Nourished, Obese Eyes: Yes: WNL HENT: Yes: WNL, Other (rn renal headache) Neck: Yes: WNL Cardiovascular: Yes: WNL Respiratory: Yes: WNL Gastrointestinal: Yes: WNL, Normal Bowel Sounds, Soft, Abdomen, Obese, Other ( bm done). No: Distention Renal/: Yes: WNL. No: CVA Tenderness - Left, CVA Tenderness - Right ....Post : Yes: Uterus firm, Uterus non-tender, Moderate lochia rubra ( perineum intact) Breast(s): Yes: WNL (not emgoged, no c/o breast pain) Musculoskeletal: Yes: WNL Extremities: Yes: WNL. No: Calf Tenderness Edema: Yes Edema: LLE: 1+, RLE: 1+ Integumentary: Yes: WNL, Tattoos Wound/Incision: Yes: Well Approximated, Sutures Intact, Steri Strips, Open to air. 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 difficulty encountered delivering baby, vacuum assist vaginal delivery performed Intraop 2 gm Iv ancef was given prior to incision post op BP controlled with po procardia Xl 30 mg nephro;ogy consult with Dr Cuadra was obtained pain is controlled well with tylenol & or oxycodone pt cleared by CPS , discharged today with baby under observation rtc 1 week Discharge Summary Reason For Visit: C/SECTION Current Active Problems Chronic hypertension affecting (Acute) Delivery by (planned) section occurring after 37 completed weeks of gestation but before 39 completed weeks gestation due to (spontaneous) onset of labor, with mention of complication (Acute) Encounter for routine follow-up (Acute) with 39 completed weeks gestation (Acute) Previous section (Acute) Substance abuse affecting in third trimester, antepartum (Acute) Condition: Stable - Instructions Diet, Activity, Other Instructions: Regular diet No driving, no lifting x 4 weeks F/U in clinic in 1 week Referrals: Sabi Calixto MD [Staff Physician] - Disposition: HOME - Home Medications Comprehensive Discharge Medication List: Ambulatory Orders One Tablet 1 tab PO DAILY 10/05/17 Acetaminophen [Tylenol .Regular Strength -] 500 mg PO Q4H PRN #30 tablet Nifedipine ER [Procardia XL -] 30 mg PO DAILY #14 tab.er.24 10/19/17 Vitamins (Sjr) - 1 tab PO DAILY tablet 10/19/17 oxyCODONE HCL [Roxicodone -] 5 mg PO Q4H PRN #30 tablet MDD 30 mg 10/19/17
--- NOTE | 2017-10-20 17:35 | PN ---
Progress Note (short form) - Note Progress Note: Renal follow up for hypertension Pt seen and examined at the bedside no acute complaints Vital Signs Temperature 97.8 F 10/20/17 10:00 Pulse Rate 100 H 10/20/17 14:00 Respiratory Rate 20 10/20/17 14:00 Blood Pressure 138/73 10/20/17 14:00 O2 Sat by Pulse Oximetry (%) 100 10/16/17 21:00 NAD awake and alert RRR, No M/R CTA + LE edema CBC, BMP 10/19/17 07:00 10/17/17 08:15 32 year old woman with PMhx of Preeclampsia who presented at 39 weeks gestation now s/p with Hypertension. # Hypertension secondary to PIH vs. underlying hypertension for discharge on procardia xl 30mg daily to follow up in our office for BP monitoring low salt diet advised at home caution with change in position advised described symptoms of hypotension to the patient Thank you Richy Cuadra DO
--- NOTE | 2017-10-23 16:26 | PATH ---
Surgical Pathology Report Patient Name: KUMAR HARRISON [facility]. Rec. 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 Specimen(s) Received PLACENTA Clinical History 6 para 2, repeat section Final Diagnosis PLACENTA, SECTION: 499 g THIRD TRIMESTER PLACENTA WITH TRIVASCULAR HYPERCOILED UMBILICAL CORD AND UNREMARKABLE PLACENTAL MEMBRANES. Electronically Signed Kiera Mahan M.D. Gross Description The specimen is received fresh labeled placenta and is a 499 gram, 16 x 14 x 4 cm. placenta with attached membranes and umbilical cord. The attached membranes are glistening and translucent and insert marginally. The umbilical cord measures 36 cm. in length and averages 1.3 cm. in diameter. The cord inserts eccentrically, 2 cm. to the nearest margin. There is a tight spiral pattern, but no true knots or strictures are identified. Cut surface of the umbilical cord reveals 3 vessels. The surface is fletcher-blue with minimal fibrin deposition and appropriate caliber vessels. The maternal surface is red-brown with focal defects. Sectioning reveals red-brown, spongy parenchyma. No lesions are identified. Shrimp Trawler Captain sections are submitted in three cassettes as follows: 1- membrane rolls and umbilical cord; 2-3- full thickness sections of placenta. [facility]/10/22/2017 [facility]/10/22/2017
== END 2017-10-20 16:15 | disposition home or self-care (01) | DRG 540 ==
LOC: JLDR 06:45 → J3W 15:58
PROVIDERS: ADMIT Obstetrics & Gynecology; ATTEND Obstetrics & Gynecology
PROC: 10D00Z1 Extraction of Products of Conception, Low, Open Approach (ICD-10-PCS; principal; 2017-10-16)
DX: O34.211 Maternal care for low transverse scar from previous cesarean delivery (principal); N85.8 Other specified noninflammatory disorders of uterus; O10.913 Unspecified pre-existing hypertension complicating pregnancy, third trimester; O99.214 Obesity complicating childbirth; E66.9 Obesity, unspecified; Z68.35 Body mass index [BMI] 35.0-35.9, adult; O99.324 Drug use complicating childbirth; F12.10 Cannabis abuse, uncomplicated; Z3A.39 39 weeks gestation of pregnancy; Z37.0 Single live birth
CPT/HCPCS: 36415; 80053; 80307; 81003; 81015; 82570; 82803; 84156; 85025; 88307-TC; 90715; 94010; J0131

== ENCOUNTER 2017-10-24 06:19 | Emergency (ER) | payer OTHER ==
[2017-10-24 06:42] VITALS: TEMP 97.9; BMI 31.6
--- NOTE | 2017-10-24 07:38 | PDOC ---
Attending Attestation - Resident Resident Name: JakeDeysi - ED Attending Attestation I have performed the following: I have examined & evaluated the patient, The case was reviewed & discussed with the resident, I agree w/resident's findings & plan, Exceptions are as noted - HPI HPI: 10/24/17 15:13 Ms Sheridan is a 32 yo F and POD #9 from low transverse , dx with induced hypertension, pt has had protinuria Pt presents to the ER with a complaint of left-sided facial pain and headache. No fever or chills No head trauma (+) nausea and lightheadedness/vertigo No numbness, no scotoma No focal weakness, difficulty walking. Pt has been taking Tylenol and oxycodone which has provided no relief since yesterday. - Physicial Exam PE: 10/24/17 15:15 - Physical Exam General Appearance: Yes: Nourished, Appropriately Dressed, Moderate Distress, Other (laying on right side in dark room, tearful and states d/t pain, answering questions appropriately and otherwise generally appears normal) HEENT: positive: EOMI, BEN, Normal ENT Inspection, Normal Voice, Hearing Grossly Normal. negative: Scleral Icterus (R), Scleral Icterus (L), Nasal Congestion Neck: positive: Trachea midline, Supple. negative: Tender, Rigid Respiratory/Chest: positive: Lungs Clear, Normal Breath Sounds. negative: Respiratory Distress, Crackles, Rhonchi, Stridor, Wheezing Cardiovascular: positive: Regular Rhythm, Regular Rate, S1, S2. negative: Edema , JVD, Murmur Gastrointestinal/Abdominal: positive: Normal Bowel Sounds, Flat, Soft. negative : Tender, Organomegaly, Pulsatile Mass, Guarding Musculoskeletal: positive: Normal Inspection. negative: Decreased Range of Motion, Vertebral Tenderness Extremity: positive: Normal Capillary Refill, Normal Inspection, Normal Range of Motion. negative: Tender, Cyanosis Integumentary: positive: Normal Color, Dry, Warm. negative: Erythema, Rash, Bruising Neurologic: positive: vice president quality improvement II-XII NML intact, Fully Oriented, Alert, Normal Mood/ Affect, Normal Response, Motor Strength 5/5, Finger to Nose (normal). negative : EOM Palsy, Facial Droop, Numbness, Sensory Deficit, Confused, Disoriented - Medical Decision Making 10/24/17 15:15 Laboratory Tests 10/24/17 10/24/17 10/24/17 07:42 07:42 09:17 WBC 3.8 L D Hgb 13.9 Hct 41.0 Plt Count 289 D Sodium 138 Potassium 4.0 Chloride 106 Carbon Dioxide 25 BUN 14 Creatinine 0.5 L Random Glucose 80 Urine Nitrite Negative Urine WBC (Auto) 27 Urine RBC (Auto) 454 10/24/17 15:15 CT negative for ICH, Stroke, dural Sinus thrombosis Pt RIVERA improved with symptomatic treatment Call placed to Dr Jaffe who has reviewed this case States pt can be discharged to home Clinical Impression: headache, initial presentation
[2017-10-24 07:48] LABS: BASO % 0.5 % (0-2.0); EOS % 4.2 % (0-4.5); HEMOGLOBIN 13.9 GM/dL (10.7-15.3); LYMPH % 42.8 % (8-40); MCH 30.3 pg (25.7-33.7); MCHC 33.8 g/dl (32.0-36.0); MEAN CELL VOLUME 89.6 fl (80-96); MEAN PLT VOLUME 7.5 fl (7.5-11.1); MONO % 9.8 % (3.8-10.2); NEUT % 42.7 % (42.8-82.8); PLATELET COUNT 289 K/MM3 (134-434); RBC 4.57 M/mm3 (3.60-5.2); RDW 14.2 % (11.6-15.6); WHITE BLOOD COUNT 3.8 K/mm3 (4.0-10.0)
--- NOTE | 2017-10-24 07:48 | PDOC ---
History of Present Illness - General Chief Complaint: Migraine Headache Stated Complaint: HEAD/NECK PAIN, BLOOD PRESSURE PROBLEM Time Seen by Provider: 10/24/17 07:11 History Source: Patient Exam Limitations: No Limitations - History of Present Illness Initial Comments: 32 YOF who is and POD #3 from low transverse (at 39 wks gestation, with Dr. Calixto, spinal anesthesia, EBL 900, had been complicated by chronic HTN with exacerbation during , proteinuria, substance abuse during 3rd), 3 C-sections total, abdominoplasty, and chronic HTN (on nicardipine) who p/w left-sided facial pain and headache. She additionally notes nausea and lightheadedness/vertigo, but no new numbness, tingling, focal weakness, difficulty walking. She has been taking both Tylenol and oxycodone which has provided no relief since yesterday. She is not breast feeding and has been expressing and wasting her breast milk. Past History - Past Medical History Allergies/Adverse Reactions: Allergies Allergy/AdvReac Type Severity Reaction Status Date / Time No Known Allergies Allergy Verified 10/16/17 07:29 Home Medications: Ambulatory Orders One Tablet 1 tab PO DAILY 10/05/17 Acetaminophen [Tylenol .Regular Strength -] 500 mg PO Q4H PRN #30 tablet Nifedipine ER [Procardia XL -] 30 mg PO DAILY #14 tab.er.24 10/19/17 Vitamins (Sjr) - 1 tab PO DAILY tablet 10/19/17 oxyCODONE HCL [Roxicodone -] 5 mg PO Q4H PRN #30 tablet MDD 30 mg 10/19/17 Asthma: No Cancer: No Cardiac Disorders: No Diabetes: No HTN: Yes Seizures: No Thyroid Disease: No - Suicide/Smoking/Psychosocial Hx Smoking History: Unknown if ever smoked Have you smoked in the past 12 months: No Number of Cigarettes Smoked Daily: 8 Information on smoking cessation initiated: No Hx Alcohol Use: No Drug/Substance Use Hx: No Hx Substance Use Treatment: No Review of Systems - Review of Systems Able to Perform ROS?: Yes Constitutional: No: Chills, Fever, Unexplained wgt Loss HEENTM: No: Nose Congestion, Throat Pain Respiratory: No: Cough, Shortness of Breath Cardiac (ROS): No: Chest Pain, Palpitations ABD/GI: Yes: Nausea. No: Constipated, Diarrhea, Vomiting : No: Burning, Dysuria Musculoskeletal: No: Back Pain, Neck Pain Integumentary: No: Bruising, Rash Neurological: Yes: Headache, Dizziness. No: Numbness, Seizure, Tingling, Weakness, Unsteady Gait, Ataxia Endocrine: No: Unexplained Weight Gain, Unexplained Weight Loss *Physical Exam - Vital Signs Last Vital Signs Temp Pulse Resp BP Pulse Ox 97.9 F 85 15 142/93 100 10/24/17 06:39 10/24/17 06:39 10/24/17 06:39 10/24/17 06:39 10/24/17 06:39 - Physical Exam General Appearance: Yes: Nourished, Appropriately Dressed, Moderate Distress, Other (laying on right side in dark room, tearful and states d/t pain, answering questions appropriately and otherwise generally appears normal) HEENT: positive: EOMI, BEN, Normal ENT Inspection, Normal Voice, Hearing Grossly Normal. negative: Scleral Icterus (R), Scleral Icterus (L), Nasal Congestion Neck: positive: Trachea midline, Supple. negative: Tender, Rigid Respiratory/Chest: positive: Lungs Clear, Normal Breath Sounds. negative: Respiratory Distress, Crackles, Rhonchi, Stridor, Wheezing Cardiovascular: positive: Regular Rhythm, Regular Rate, S1, S2. negative: Edema , JVD, Murmur Gastrointestinal/Abdominal: positive: Normal Bowel Sounds, Flat, Soft. negative : Tender, Organomegaly, Pulsatile Mass, Guarding Musculoskeletal: positive: Normal Inspection. negative: Decreased Range of Motion, Vertebral Tenderness Extremity: positive: Normal Capillary Refill, Normal Inspection, Normal Range of Motion. negative: Tender, Cyanosis Integumentary: positive: Normal Color, Dry, Warm. negative: Erythema, Rash, Bruising Neurologic: positive: group home counselor II-XII NML intact, Fully Oriented, Alert, Normal Mood/ Affect, Normal Response, Motor Strength 5/5, Finger to Nose (normal). negative : EOM Palsy, Facial Droop, Numbness, Sensory Deficit, Confused, Disoriented ED Treatment Course - LABORATORY CBC & Chemistry Diagram: 10/24/17 07:42 10/24/17 07:42 Medical Decision Making - Medical Decision Making female Pt p/w left-sided headache and facial pain days after . Initial Vital Signs Temp Pulse Resp BP Pulse Ox 97.9 F 85 15 142/93 100 10/24/17 06:39 10/24/17 06:39 10/24/17 06:39 10/24/17 06:39 10/24/17 06:39 Exam: appears uncomfortable, tearful 2/2 pain, but otherwise normal exam, normal neuro exam, normal DTRs, no e/o somnolence, respiratory depression, or hemodynamic instability DDX IBNLT: preeclampsia, HELLP syndrome, migraine, trigeminal neuralgia, venous sinus thrombosis, other intracranial thrombosis, ICH, cluster RIVERA, tension RIVERA, gestational HTN, chronic HTN, etc. W/U ordered: CBCD, CMP, Mg, UA, urine culture, HCT wwo contrast TX ordered: IV, Reglan (pt not ), Benadryl, IVF, IV Mg sulfate Preeclampsia if gestational HTN and dipstick protein +1 or end organ damage (PLT <100k, Cr>1.1, LFTs 2x normal, pulm edema, neuro sxs). HCT: NADP Laboratory Tests 10/24/17 10/24/17 10/24/17 07:42 07:42 09:17 WBC 3.8 L D RBC 4.57 Hgb 13.9 Hct 41.0 MCV 89.6 MCH 30.3 MCHC 33.8 RDW 14.2 Plt Count 289 D MPV 7.5 Absolute Neuts (auto) 1.6 Neutrophils % 42.7 L D Lymphocytes % 42.8 H D Monocytes % 9.8 Eosinophils % 4.2 Basophils % 0.5 Nucleated RBC % 0 Sodium 138 Potassium 4.0 Chloride 106 Carbon Dioxide 25 Anion Gap 7 L BUN 14 Creatinine 0.5 L Creat Clearance w eGFR > 60 Random Glucose 80 Calcium 8.5 Magnesium 2.1 Total Bilirubin 0.3 AST 19 ALT 22 Alkaline Phosphatase 95 Total Protein 6.8 Albumin 3.1 L Urine Color Yellow Urine Appearance Cloudy Urine pH 8.0 D Ur Specific [facility] 1.012 Urine Protein 2+ H Urine Glucose (UA) Negative Urine Ketones Negative Urine Blood 3+ H Urine Nitrite Negative Urine Bilirubin Negative Urine Urobilinogen Negative Ur Leukocyte Esterase Negative Urine WBC (Auto) 27 Urine RBC (Auto) 454 Ur Epithelial Cells Rare Urine Mucus Rare Vital Signs Temperature 97.9 F 06/09/18 06:39 Pulse Rate 85 10/24/17 06:39 Respiratory Rate 15 10/24/17 06:39 Blood Pressure 142/93 10/24/17 06:39 O2 Sat by Pulse Oximetry (%) 100 10/24/17 06:39 Repeat VS: BP 132/76, HR 81 Reassessment: RIVERA resolved per the patient's report, neuro exam unremarkable. 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 Spoke with Dr. Mcgrath who agrees patient can be managed in clinic (to f/u with Dr. Calixto on Thursday) if no longer has RIVERA and BP is normalized. The Pt has gotten significant relief of symptoms with ED medications. She does not have workup findings concerning for life-threatening arrhythmia or other dangerous cause. She is appropriate for discharge with close outpatient follow up. She is comfortable with this plan and will follow up with her ARM[employer] RECONNAISSANCE SPECIALIST and PCP in 1-3 days. Specific return precautions are discussed with Pt and she will come back to the ER if necessary. *DC/Admit/Observation/Transfer Diagnosis at time of Disposition: complication Headache Qualifiers: Headache type: unspecified Headache chronicity pattern: unspecified pattern Intractability: not intractable Qualified Code(s): R51 - Headache Proteinuria Qualifiers: Proteinuria type: gestational Trimester: unspecified trimester Qualified Code(s ): O12.10 - Gestational proteinuria, unspecified trimester - Discharge Dispostion Disposition: HOME Condition at time of disposition: Stable Decision to Admit order: No - Referrals - Patient Instructions Additional Instructions: You were seen in the ER for headache shortly after . We did lab work and a head CT, and gave you medications which helped your headache. We found protein in your urine and you should follow up with Dr. Calixto on Thursday about this and your headache and blood pressure. We checked your blood pressure after your pain was under control and it was normal. After our assessment, we do not believe you are having a medical emergency at this time, and we believe you are safe to go home. Please follow up with your regular PCP doctor in 1-3 days. Call their clinic as soon as possible, tell them you were seen in the ER, and tell them you need an appointment. If you have any new or worsening symptoms , especially worsened headache, numbness, tingling, weakness of one side or part of your body, seizures, or anything else, please come back to the ER at any time (24 hours a day). If you are having severe or life threatening symptoms , or symptoms that make it unsafe to drive or have someone drive you, please call 911. - Post Discharge Activity
[2017-10-24] MEDS ORDERED: METOCLOPRAMIDE HCL INJECTION 10 MG/2 ML VIAL IVPUSH ONE (07:52)
[2017-10-24] MEDS ORDERED: SODIUM CHLORIDE 0.9% 500 ML INFUS.BAG IV ONE (07:52)
[2017-10-24] MEDS ORDERED: METOCLOPRAMIDE HCL INJECTION 10 MG/2 ML VIAL ONE (08:12)
[2017-10-24] MEDS ORDERED: MAGNESIUM SULF 50% (8.12 MEQ/2 ML-1 GM VIAL) IVPB ONE (08:23)
[2017-10-24 08:28] LABS: ALBUMIN 3.1 g/dl (3.4-5.0); ALK PHOS 95 U/L (45-117); ANION GAP 7 (8-16); BILIRUBIN,TOTAL 0.3 mg/dL (0.2-1.0); BLOOD UREA NITROGEN 14 mg/dL (7-18); CALCIUM 8.5 mg/dL (8.5-10.1); CHLORIDE 106 mmol/L (98-107); CO2 25 mmol/L (21-32); CREATININE 0.5 mg/dL (0.55-1.02); GLUCOSE,RANDOM 80 mg/dL (74-106); MAGNESIUM 2.1 mg/dL (1.8-2.4); SGOT/AST 19 U/L (15-37); SGPT/ALT 22 U/L (12-78); SODIUM 138 mmol/L (136-145); TOT PROT 6.8 g/dl (6.4-8.2)
[2017-10-24 09:45] LABS: URINE APPEARANCE CLOUDY; URINE BILIRUBIN NEGATIVE (<2.0 mg/dL); URINE BLOOD 3+ (NEGATIVE); URINE COLOR YELLOW; URINE GLUCOSE (UA) NEGATIVE (NEGATIVE); URINE KETONE NEGATIVE (NEGATIVE); URINE LEUK ESTERASE NEGATIVE (NEGATIVE); URINE NITRITE NEGATIVE (NEGATIVE); URINE UROBILINOGEN NEGATIVE mg/dL (0.2-1.0)
[2017-10-24 09:46] LABS: URINE PROTEIN 2+ (NEGATIVE)
[2017-10-24 09:58] LABS: EPI CELLS RARE /HPF (FEW); URINE MUCUS RARE
[2017-10-24 15:28] VITALS: BP 138/76; PULSE 82
== END 2017-10-24 15:28 | disposition home or self-care (01) ==
LOC: JER 06:19
PROC: 3E033GC Introduction of Other Therapeutic Substance into Peripheral Vein, Percutaneous Approach (ICD-10-PCS; principal; 2017-10-24)
PROC: 3E0337Z Introduction of Electrolytic and Water Balance Substance into Peripheral Vein, Percutaneous Approach (ICD-10-PCS; 2017-10-24)
DX: O12.15 Gestational proteinuria, complicating the puerperium (principal); R51 Headache; I10 Essential (primary) hypertension
CPT/HCPCS: 36415; 70470-TC; 80053; 81003; 81015; 83735; 85025; 87086; 99284-25